=== PATIENT | male | born 1960 | race Asian ===

== ENCOUNTER 2018-11-24 11:05 | Observation (INO) | payer MEDICAID ==
[~2018-11-24] VITALS: Ht 172.7 cm; Wt 93.3 kg
[2018-11-24] MEDS ORDERED: COZAAR50 MG PO (11:37)
[2018-11-24] MEDS ORDERED: HYDROCHLOROTHIA25 MG PO (11:38)
[2018-11-24] MEDS ORDERED: ATIVAN1 MG PO (11:38)
[2018-11-24] MEDS ORDERED: TRAZODONE HCL150 MG PO (11:39)
[2018-11-24 13:02] LABS: HEMATOCRIT 31.1 % (42.0-54.0); HEMOGLOBIN 11.1 g/dL (13.5-17.5); LYMPHOCYTES 18.1 % (15-50); MCH 34.5 pg (26.0-34.0); MCHC 35.7 g/dL (31.0-37.0); MCV 96.6 fL (80.0-100.0); MEAN PLATELET VOLUME 9.7 fL (7.4-10.4); NEUTROPHILS 66.4 % (40-80); PLATELET COUNT 83 10x3/uL (130-400); RBC 3.22 10x6/uL (4.20-6.10); RDW 16.5 % (11.5-14.5); WBC 5.6 10x3/uL (4.8-10.8)
[2018-11-24 13:05] LABS: INR 1.46 (0.85-1.17); PROTIME 17.1 SECONDS (11.6-15.0)
[2018-11-24 13:06] LABS: APTT 41.3 SECONDS (22.8-39.4)
[2018-11-24 13:12] LABS: ALBUMIN 2.9 g/dL (3.4-5.0); ALKALINE PHOSPHATASE 100 U/L (46-116); ALT (SGPT) 57 U/L (10-68); AMYLASE - SERUM 92 U/L (25-115); CALC OSMOLALITY 276 mosm/kg (275-300); CALCIUM 8.1 mg/dL (8.5-10.1); CARBON DIOXIDE 25.1 mmol/L (21.0-32.0); CHLORIDE - SERUM 104 mmol/L (98-107); CREATININE - SERUM 0.9 mg/dL (0.6-1.3); GLUCOSE 100 mg/dL (74-106); LIPASE 859 U/L (73-393); POTASSIUM - SERUM 3.6 mmol/L (3.5-5.1); PROTEIN - SERUM 7.5 g/dL (6.4-8.2); SODIUM 139 mmol/L (136-145); UREA NITROGEN 10 mg/dL (7-18); eGFR NON AFRICAN AMERICAN > 90 mL/min (90-120)
[2018-11-24 14:51] VITALS: BP 150/78
[2018-11-24 15:09] LABS: PLATELET ESTIMATE DECREASED
[2018-11-24 17:57] VITALS: BP 120/54
[2018-11-24 18:25] LABS: INR 1.43 (0.85-1.17); PROTIME 16.8 SECONDS (11.6-15.0)
--- NOTE | 2018-11-24 19:15 | NUR ---
RECEIVED CARE FROM DAY NURSE. LYING IN BED. REPORTS NO NEEDS AT THIS TIME. CALL LIGHT AT SIDE.
[2018-11-24 20:03] VITALS: BP 124/63
[2018-11-24 23:47] VITALS: BP 132/70
[2018-11-25 04:00] VITALS: BP 143/74
--- NOTE | 2018-11-25 05:00 | NUR ---
I have reviewed this patient and I concur with the Shift Assessment completed by the Licensed Practical Nurse today this shift.
[2018-11-25 05:05] LABS: EOSINOPHILS 4.4 % (0-7); HEMATOCRIT 29.9 % (42.0-54.0); HEMOGLOBIN 10.5 g/dL (13.5-17.5); IMMATURE GRANULOCYTES 0.2 % (0-5); LYMPHOCYTES 24.1 % (15-50); MCH 33.3 pg (26.0-34.0); MCHC 35.1 g/dL (31.0-37.0); MCV 94.9 fL (80.0-100.0); MEAN PLATELET VOLUME 9.8 fL (7.4-10.4); NEUTROPHILS 59.3 % (40-80); PLATELET COUNT 68 10x3/uL (130-400); RBC 3.15 10x6/uL (4.20-6.10); RDW 15.6 % (11.5-14.5)
[2018-11-25 05:26] LABS: ALBUMIN 2.6 g/dL (3.4-5.0); ALKALINE PHOSPHATASE 82 U/L (46-116); ALT (SGPT) 48 U/L (10-68); BILIRUBIN - TOTAL 2.24 mg/dL (0.2-1.3); CALC OSMOLALITY 277 mosm/kg (275-300); CARBON DIOXIDE 25.1 mmol/L (21.0-32.0); CHLORIDE - SERUM 106 mmol/L (98-107); CREATININE - SERUM 0.9 mg/dL (0.6-1.3); GLUCOSE 95 mg/dL (74-106); MAGNESIUM - SERUM 2.5 mg/dL (1.8-2.4); POTASSIUM - SERUM 3.8 mmol/L (3.5-5.1); SODIUM 140 mmol/L (136-145); UREA NITROGEN 9 mg/dL (7-18); eGFR NON AFRICAN AMERICAN > 90 mL/min (90-120)
--- NOTE | 2018-11-25 06:25 | NUR ---
CALLED TO ROOM. REPORTS VOMITING AND SHAKES. REQUEST MEDICATION FOR DT'S. ATIVAN GIVEN IV PER ORDER. PT REPORTS HE IS NOT ALLERGIC TO LIBRIUM.
[2018-11-25 07:22] LABS: HEPATITIS C ANTIBODY <0.1 (0.0-0.9)
[2018-11-25 08:44] VITALS: BP 134/68
[2018-11-25 13:10] LABS: CA 19-9 40 U/mL (0-35); CEA 8.5 ng/mL (0.0-4.7)
[2018-11-25 13:48] VITALS: Ht 172.7 cm; Wt 93.3 kg
[2018-11-25 17:14] VITALS: BP 136/79
--- NOTE | 2018-11-25 19:15 | NUR ---
RECEIVED CARE FROM DAY NURSE. UP AMBULATING IN ROOM. FAMILY AT SIDE. REPORTS NO NEEDS AT THIS TIME. IV SL TO RIGHT HAND.
--- NOTE | 2018-11-25 19:22 | NUR ---
I have reviewed this patient and I concur with the Shift Assessment completed by the Licensed Practical Nurse today this shift.
[2018-11-25 19:41] VITALS: BP 123/55
--- NOTE | 2018-11-25 21:12 | NUR ---
FAMILY CONCERNED ABOUT PT ITICHING. REPORTS IT GOT BETTER THE NIGHT BEFORE WHEN THE BANANA BAG WAS STARTED. RECEIVED ORDER FROM DR SPENCER FOR BENADRYL AND TO RENEW THE BANANA BAG ORDER.
[2018-11-26 00:02] VITALS: BP 119/63
[2018-11-26 04:00] VITALS: BP 143/82
[2018-11-26 05:28] LABS: BASOPHILS 1.2 % (0-2); EOSINOPHILS 6.8 % (0-7); HEMOGLOBIN 10.7 g/dL (13.5-17.5); LYMPHOCYTES 18.6 % (15-50); MCH 33.5 pg (26.0-34.0); MCHC 34.5 g/dL (31.0-37.0); MEAN PLATELET VOLUME 10.8 fL (7.4-10.4); MONOCYTES 15.2 % (2-11); NEUTROPHILS 58.2 % (40-80); PLATELET COUNT 70 10x3/uL (130-400); RBC 3.19 10x6/uL (4.20-6.10); RDW 15.6 % (11.5-14.5); WBC 5.1 10x3/uL (4.8-10.8)
[2018-11-26 05:32] LABS: MCV 97.2 fL (80.0-100.0)
[2018-11-26 06:22] LABS: ALBUMIN 2.5 g/dL (3.4-5.0); ANION GAP 12.6 mmol/L (8-16); BILIRUBIN - TOTAL 2.84 mg/dL (0.2-1.3); CARBON DIOXIDE 25.7 mmol/L (21.0-32.0); CREATININE - SERUM 1.1 mg/dL (0.6-1.3); MAGNESIUM - SERUM 2.1 mg/dL (1.8-2.4); POTASSIUM - SERUM 3.3 mmol/L (3.5-5.1); PROTEIN - SERUM 6.6 g/dL (6.4-8.2)
[2018-11-26 08:44] VITALS: BP 129/67
[2018-11-26] MEDS ORDERED: LIBRIUM25 MG PO (12:02)
--- NOTE | 2018-11-26 12:39 | MORECARE ---
CASE MANAGEMENT DISCHARGE SUMMARY PATIENT: TANG ROMEO UNIT: [id number] ADM DATE: 11/24/18 AGE: 58 : 62 SEX: M ROOM/BED: D.2230 AUTHOR: REGINALDO IVORY PHYSICIAN: REFERRING PHYSICIAN: PARMINDER SPENCER MD DATE OF SERVICE: 11/26/18 Discharge Plan Patient Name: TANG ROMEO Facility: [facility]:[place] : 1960 Planned Disposition: Home Anticipated Discharge Date: 11/26/18 Discharge Date: Expected LOS: 2 Initial Reviewer: [email or web address] Initial Review Date: 11/24/2018 Generated: 11/26/18 1:38 pm Comments DCP- Discharge Planning Updated by [email or web address]: Kimberly Jerome on 11/26/18 11:[address] CM PROVIDED PRIMARY NURSE WITH BROCHURE FOR LOCAL AA AND INTERNET PRINTING OF 5 ETOH REHAB PROGRAMS IF PATIENT IS INTERESTED. Patient Name: TANG ROMEO Page [id number] at 1239 All edits/amendments must be made on the electronic document DICTATION DATE: 11/26/18 [address] [employer] OPERATOR: ZURDO 11/26/18 1238 RPT#: [id number] DC DATE: STATUS: ADM IN [facility] [address] [place] [address] END OF REPORT
[2018-11-26 13:21] VITALS: BP 127/64
== END 2018-11-26 16:03 | disposition home or self-care (01) ==
LOC: OBSVTIME 11:05 → D.MS 11:05
PROVIDERS: Family Medicine; Surgery; ADMIT Family Medicine; ATTEND Internal Medicine Nephrology
DX: K86.0 Alcohol-induced chronic pancreatitis (principal); K70.10 Alcoholic hepatitis without ascites; D64.9 Anemia, unspecified; D69.6 Thrombocytopenia, unspecified; L29.9 Pruritus, unspecified; F10.20 Alcohol dependence, uncomplicated; R60.9 Edema, unspecified

== ENCOUNTER 2018-12-15 13:33 | Emergency (ER) | payer MEDICAID ==
[~2018-12-15] VITALS: Ht 172.7 cm; Wt 97.3 kg
[~2018-12-15 13:33] MED LIST: ATIVAN1 MG PO; COZAAR50 MG PO; HYDROCHLOROTHIA25 MG PO; LIBRIUM25 MG PO; TRAZODONE HCL150 MG PO
[2018-12-15 13:38] VITALS: Ht 172.7 cm; Wt 97.3 kg
[2018-12-15 14:31] LABS: BASOPHILS 0.6 % (0-2); EOSINOPHILS 6.8 % (0-7); HEMATOCRIT 48.7 % (42.0-54.0); HEMOGLOBIN 16.6 g/dL (13.5-17.5); LYMPHOCYTES 18.6 % (15-50); MCH 33.5 pg (26.0-34.0); MCHC 34.1 g/dL (31.0-37.0); MCV 98.2 fL (80.0-100.0); MEAN PLATELET VOLUME 10.8 fL (7.4-10.4); MONOCYTES 8.8 % (2-11); NEUTROPHILS 65.2 % (40-80); PLATELET COUNT 96 10x3/uL (130-400); RBC 4.96 10x6/uL (4.20-6.10); RDW 15.4 % (11.5-14.5); WBC 3.4 10x3/uL (4.8-10.8)
[2018-12-15 14:38] LABS: ALBUMIN 2.9 g/dL (3.4-5.0); ALKALINE PHOSPHATASE 90 U/L (46-116); ALT (SGPT) 30 U/L (10-68); BILIRUBIN - TOTAL 0.67 mg/dL (0.2-1.3); CALC OSMOLALITY 285 mosm/kg (275-300); CALCIUM 9.1 mg/dL (8.5-10.1); CHLORIDE - SERUM 107 mmol/L (98-107); CREATININE - SERUM 1.2 mg/dL (0.6-1.3); GLUCOSE 123 mg/dL (74-106); PROTEIN - SERUM 7.8 g/dL (6.4-8.2); SODIUM 142 mmol/L (136-145); UREA NITROGEN 19 mg/dL (7-18); eGFR NON AFRICAN AMERICAN 66 mL/min (90-120)
[2018-12-15 14:41] LABS: APTT 45.5 SECONDS (22.8-39.4); INR 1.25 (0.85-1.17); PROTIME 15.1 SECONDS (11.6-15.0)
[2018-12-15 14:46] LABS: CKMB 0.9 U/L (0.0-3.6); CREATINE KINASE 71 UL (21-232); THYROID STIMULATING HORMONE 1.36 uIU/mL (0.36-3.74)
[2018-12-15 14:48] LABS: TROPONIN-I < 0.017 ng/mL (0.000-0.060)
[2018-12-15 15:22] LABS: UDS - AMPHET NEGATIVE QUAL (NEGATIVE); UDS - BARB NEGATIVE QUAL (NEGATIVE); UDS - BENZO POSITIVE QUAL (NEGATIVE); UDS - COCAINE NEGATIVE QUAL (NEGATIVE); UDS - OPIATE NEGATIVE QUAL (NEGATIVE); UDS - PCP NEGATIVE QUAL (NEGATIVE); UDS - THC NEGATIVE QUAL (NEGATIVE)
[2018-12-15 15:24] LABS: APPEARANCE CLEAR (CLEAR); BILIRUBIN NEGATIVE (NEGATIVE); COLOR YELLOW (YELLOW); GLUCOSE NEGATIVE (NEGATIVE); KETONE NEGATIVE (NEGATIVE); NITRITE NEGATIVE (NEGATIVE); PROTEIN NEGATIVE (NEGATIVE); SPECIFIC GRAVITY 1.015 (1.005-1.020); UROBILINOGEN NORMAL (NORMAL)
[2018-12-15 15:41] LABS: PLATELET ESTIMATE DECREASED
[2018-12-15] MEDS ORDERED: ULTRAM50 MG PO (21:06)
[2018-12-15 21:17] VITALS: BP 142/77
== END 2018-12-15 21:17 | disposition home or self-care (01) ==
LOC: D.ER 13:33
PROVIDERS: Family Medicine
DX: F10.239 Alcohol dependence with withdrawal, unspecified (principal)

== ENCOUNTER 2018-12-21 11:18 | Emergency (ER) | payer MEDICAID ==
[~2018-12-21] VITALS: Ht 172.7 cm; Wt 93.2 kg
[~2018-12-21 11:18] MED LIST changes: +ULTRAM50 MG PO
[2018-12-21 11:24] VITALS: Ht 172.7 cm; Wt 93.2 kg
[2018-12-21 13:06] LABS: APPEARANCE CLEAR (CLEAR); BILIRUBIN NEGATIVE (NEGATIVE); COLOR YELLOW (YELLOW); GLUCOSE NEGATIVE (NEGATIVE); KETONE NEGATIVE (NEGATIVE); NITRITE NEGATIVE (NEGATIVE); PROTEIN NEGATIVE (NEGATIVE); SPECIFIC GRAVITY 1.015 (1.005-1.020); UROBILINOGEN NORMAL (NORMAL)
[2018-12-21 13:35] LABS: BASOPHILS 0.4 % (0-2); EOSINOPHILS 5.3 % (0-7); HEMATOCRIT 32.2 % (42.0-54.0); HEMOGLOBIN 11.4 g/dL (13.5-17.5); IMMATURE GRANULOCYTES 0.3 % (0-5); LYMPHOCYTES 9.7 % (15-50); MCH 34.1 pg (26.0-34.0); MCHC 35.4 g/dL (31.0-37.0); MCV 96.4 fL (80.0-100.0); MEAN PLATELET VOLUME 10.1 fL (7.4-10.4); MONOCYTES 6.4 % (2-11); NEUTROPHILS 77.9 % (40-80); RBC 3.34 10x6/uL (4.20-6.10); RDW 14.3 % (11.5-14.5); WBC 16.8 10x3/uL (4.8-10.8)
[2018-12-21 13:36] LABS: PLATELET COUNT 166 10x3/uL (130-400)
[2018-12-21 13:48] LABS: ALKALINE PHOSPHATASE 65 U/L (46-116); ALT (SGPT) 74 U/L (10-68); BILIRUBIN - TOTAL 0.94 mg/dL (0.2-1.3); CALC OSMOLALITY 280 mosm/kg (275-300); CALCIUM 8.9 mg/dL (8.5-10.1); CHLORIDE - SERUM 95 mmol/L (98-107); CREATININE - SERUM 3.1 mg/dL (0.6-1.3); GLUCOSE 94 mg/dL (74-106); POTASSIUM - SERUM 3.4 mmol/L (3.5-5.1); PROTEIN - SERUM 8.3 g/dL (6.4-8.2); SODIUM 133 mmol/L (136-145); UREA NITROGEN 54 mg/dL (7-18); eGFR NON AFRICAN AMERICAN 22 mL/min (90-120)
[2018-12-21 13:51] LABS: AMYLASE - SERUM 46 U/L (25-115); LIPASE 213 U/L (73-393); PHOSPHOROUS 6.3 mg/dL (2.5-4.9); TROPONIN-I < 0.017 ng/mL (0.000-0.060)
[2018-12-21] MEDS ORDERED: K-PHOS250 MG PO (14:23)
[2018-12-21 14:38] VITALS: BP 128/74
== END 2018-12-21 14:49 | disposition home or self-care (01) ==
LOC: D.ER 11:18
PROVIDERS: Emergency Medicine
DX: N17.9 Acute kidney failure, unspecified (principal); R60.9 Edema, unspecified; K76.9 Liver disease, unspecified; E72.20 Disorder of urea cycle metabolism, unspecified; I10 Essential (primary) hypertension